=== PATIENT | male | born 1995 | race African-American/Black ===

== ENCOUNTER 2021-07-15 17:27 | Emergency (ER) | payer OTHER ==
[~2021-07-15] VITALS: Ht 170.2 cm; Wt 74.8 kg
[2021-07-15] MEDS ORDERED: ACETAMINOPHEN500 MG PO (17:52)
[2021-07-15] MEDS ORDERED: AUGMENTIN 500-1 EACH PO (17:52)
[2021-07-15] MEDS ORDERED: IBUPROFEN IB200 MG PO (17:52)
[2021-07-15 18:00] VITALS: BP 141/83
== END 2021-07-15 18:00 | disposition home or self-care (01) ==
LOC: FSED 17:33
DX: K08.89 Other specified disorders of teeth and supporting structures (principal); K02.9 Dental caries, unspecified
CPT/HCPCS: 99282

== ENCOUNTER 2021-08-31 22:02 | Emergency (ER) | payer OTHER ==
[~2021-08-31] VITALS: Ht 172.7 cm; Wt 88.0 kg
[~2021-08-31 22:02] MED LIST: ACETAMINOPHEN500 MG PO; AUGMENTIN 500-1 EACH PO; IBUPROFEN IB200 MG PO
[2021-08-31] MEDS ORDERED: DEXAMETHASONE SOD PHOS INJ 4 MG/ML SDV IM ONE (23:45)
[2021-08-31] MEDS ORDERED: ALBUTEROL/IPRATROPIUM 3 ML NEB NEB ONE (23:45)
[2021-09-01] MEDS ORDERED: DEXAMETHASONE SOD PHOS INJ 4 MG/ML SDV ONE (00:14)
[2021-09-01] MEDS ORDERED: ALBUTEROL/IPRATROPIUM 3 ML NEB ONE (00:15)
[2021-09-01] MEDS ORDERED: VENTOLIN HFA18 GM INH ×2 (00:18→00:29)
[2021-09-01] MEDS ORDERED: AZITHROMYCIN250 MG PO ×2 (00:21→00:29)
[2021-09-01] MEDS ORDERED: NAPROSYN500 MG PO (00:29)
[2021-09-01] MEDS ORDERED: CETIRIZINE HCL10 MG PO (00:30)
[2021-09-01] MEDS ORDERED: FLONASE ALLERG9.9 ML INH (00:31)
== END 2021-09-01 01:01 | disposition home or self-care (01) ==
LOC: FSED 22:20
DX: R05.9 Cough, unspecified (principal); J20.9 Acute bronchitis, unspecified; J30.2 Other seasonal allergic rhinitis
CPT/HCPCS: 71046; 99283; J1100